=== PATIENT | female | born 1975 | race Caucasian/White ===

== ENCOUNTER 2025-05-25 10:31 | Outpatient (REF) | payer SELFPAY ==
[2025-05-25 10:39] LABS: MANUAL DIFF FLAG NO
[2025-05-25 10:51] LABS: Hematocrit 30.6 % (37.0-47.0); Hemoglobin 9.9 g/dl (12.0-16.0); Imm Gran Abs Auto 0.07 X10*3/uL (0.00-0.03); Imm Gran Pct Auto 0.7 % (0.0-0.4); Lymphocytes Absolute Auto 1.5 X10*3/uL (1.2-4.9); Mean Corpuscular HGB Conc 32.4 g/dl (31.0-35.0); Mean Corpuscular Hemoglobin 30.0 pg (27.0-33.0); Mean Corpuscular Volume 92.7 fL (80.0-98.0); NRBC Abs Auto 0.000 X10*3/uL (0.0-0.012); NRBC Pct Auto 0.0 /100WBC (0.0-0.2); Platelet Count 343 X10*3/uL (160-400); Red Blood Count 3.30 X10*6/uL (4.20-5.50); White Blood Count 10.2 X10*3/uL (4.8-10.8)
[2025-05-25 11:14] LABS: Alanine Aminotransferase 75 U/L (0-31); Albumin Level 3.6 g/dL (3.5-5.0); Alkaline Phosphatase 176 U/L (39-117); Anion Gap 13 (12-20); Aspartate Amino Transferase 38 U/L (5-31); Blood Urea Nitrogen 37 mg/dL (9-16); Calcium 10.4 mg/dL (8.4-10.2); Carbon Dioxide 29 mmol/L (22-29); Chloride 97 mmol/L (96-108); Cholesterol 128 mg/dL (<200); Estimated Glomerular Filt Rate 29; HDL Cholesterol 46 mg/dL (>40); Potassium 4.3 mmol/L (3.3-5.1); Sodium 135 mmol/L (135-145); Total Protein 7.2 g/dL (6.5-8.0); Triglycerides 122 mg/dL (<150)
--- OUTSIDE RECORDS SUMMARY | 2025-05-25 13:02 | XMS_ITS | Clinical Summary ---
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 Not on cee e 09/29/2022 Are you concerned about learning? Not on file 09/29/2022 No 09/29/2022 No 09/29/2022 Digital Access Answer Date Recorded No 10/30/2022 No 10/30/2022 No 10/30/2022 Reliable internet access at home? Not on file 10/30/2022 Device with a working camera? Not on file Comments Unknown Sex and Gender Information Value Date Recorded Sex Assigned at Not on file Legal Sex Female 9:25 PM EDT Gender Identity Not on file Sexual Orientation Not on file Plan of Treatment Health Maintenance Due Date Last Done Comments LIPID PANEL 1977 DEPRESSION SCREENING 1989 SMOKING Hx and SMOKELESS TOBACCO SCREENING 1990 HEPATITIS C SCREENING 11/18/1995 HIV ONE-TIME SCREENING (18-6 5 YEARS) 11/18/1995 PAP SMEAR 1998 MAMMOGRAM 2017 Adult Td,Tdap Booster 07/19/2022 07/19/2012 COLOGUARD 2022 COLONOSCOPY 2022 COLORECTAL CANCER SCREENING 2022 FIT TEST 2022 FOBT 2022 SIGMOIDOSCOPY 2022 VIRTUAL COLONOSCOPY 2022 INFLUENZA VACCINE (#1) 2025 4, 07/19/2012 COVID-19 VACCINE (2024-2 6 season) 2025 HEPATITIS A VACCINES Aged Out No long er eligible based on patient's age to complete this topic HIB VACCINES Aged Out No longer eligi ble based on patient's age to complete this topic MENINGOCOCCAL VACCINES (ACWY) Aged Out No longer eligible based on patient's age to complete this topic MENINGOCOCCAL VACCINES (B) Aged Out N o longer eligible based on patient's age to complete this topic PNEUMOCOCCAL VACCINES (0-49 years) Aged Out No longer eligible b ased on patient's age to complete this topic Medical Devices Not on file Insurance [employer] Earnest [address] [employer] Agitar [address] [employer] [place] [address] [place] [address] Additional Source Comments The information contained in this document represents components of the legal health record. It is not the complete legal health record.[facility]
[2025-05-26 14:28] LABS: Rubeola IgG (Measles) 53.50 AU/mL
== END 2025-05-25 10:32 | disposition home or self-care (01) ==
LOC: HO.WMHL 10:31
PROVIDERS: Visit Provider Nurse Practitioner Family
DX: N18.4 Chronic kidney disease, stage 4 (severe) (principal); D63.1 Anemia in chronic kidney disease; Z01.84 Encounter for antibody response examination
CPT/HCPCS: 36415; 80053; 80061; 85025; 86481; 86735; 86762; 86765